=== PATIENT | female | born 1995 | race African-American/Black ===

== ENCOUNTER 2019-11-27 19:02 | Inpatient (IN) | payer MEDICAID ==
[2019-11-27] MEDS ORDERED: NORMAL SALINE 1000 ML 1,000 ML IV ONE ×2 (19:37→21:09)
[2019-11-27] MEDS ORDERED: ONDANSETRON HCL INJ/PF 4 MG/2 ML SDV IV ONE (19:38)
--- NOTE | 2019-11-27 19:41 | ER Document Report ---
ED General - General Mode of Arrival: Ambulatory Information source: Patient - HPI Onset/Duration: Gradual, Worse Quality of pain: Achy Pain Level: 5 Associated symptoms: Diarrhea, Fever, Nausea, Vomiting, Shortness of breath. denies: Chest pain, Nonproductive cough, Productive cough Exacerbated by: Denies Relieved by: Denies Similar symptoms previously: No Recently seen / treated by doctor: No <KIRAN SCHMIDT - Last Filed: 11/28/19 00:07> <AMINTA CHURCHILL - Last Filed: 11/28/19 00:55> - General Chief Complaint: Fever Stated Complaint: FEVER Time Seen by Provider: 11/27/19 19:11 Notes: Patient presents complaining of fever and chills that started 2 hours prior to arrival. Patient complains of low back pain. Patient denies any urinary symptoms. Patient complains of shortness of breath although denies any cough. Patient recently traveled here 2 weeks ago via car from [place]. Patient reports nausea vomiting and diarrhea as well. Patient states she is vomited 3 times and had diarrhea x2 episodes. Patient declines giving her history, preferring to have her mother answered the majority of the history questions. (KIRAN SCHMIDT) - Related Data Allergies/Adverse Reactions: banana Allergy (Verified 11/27/19 21:00) ibuprofen [From Motrin] Allergy (Verified 11/27/19 20:58) morphine Allergy (Verified 11/27/19 20:57) Penicillins Allergy (Verified 11/27/19 21:00) iv dye Allergy (Uncoded 11/27/19 21:00) Past Medical History - General Information source: Patient, Relative - Social History Smoking Status: Never Smoker Frequency of alcohol use: None Drug Abuse: None Lives with: Family Family History: Reviewed & Not Pertinent - Medical History Medical History: Other - Sickle cell anemia Pulmonary Medical History: Reports: Hx Asthma Past Surgical History: Reports: Hx Cholecystectomy, Hx Vascular Surgery - Port <KIRAN SCHMIDT - Last Filed: 11/28/19 00:07> Review of Systems - Review of Systems Constitutional: Chills, Fever EENT: No symptoms reported Cardiovascular: No symptoms reported. denies: Chest pain Respiratory: Short of breath. denies: Cough Gastrointestinal: Abdominal pain, Diarrhea, Nausea, Vomiting Genitourinary: Flank pain Female Genitourinary: No symptoms reported Musculoskeletal: Back pain Skin: No symptoms reported. denies: Rash Hematologic/Lymphatic: No symptoms reported Neurological/Psychological: No symptoms reported <KIRAN SCHMIDT - Last Filed: 11/28/19 00:07> Physical Exam - General General appearance: Alert In distress: Mild - HEENT Head: Normocephalic, Atraumatic Eyes: Normal Conjunctiva: Normal Nasal: Normal Mouth/Lips: Normal Mucous membranes: Dry Neck: Normal, Supple. No: Lymphadenopathy - Respiratory Respiratory status: Tachypnea Chest status: Nontender Breath sounds: Normal Chest palpation: Normal - Cardiovascular Rhythm: Tachycardia Heart sounds: S1 appreciated, S2 appreciated Murmur: No - Abdominal Inspection: Obese Distension: No distension Bowel sounds: Normal Tenderness: Tender - epigastric Organomegaly: No organomegaly - Back Back: CVA tenderness - bilat - Extremities General upper extremity: Normal inspection, Normal ROM General lower extremity: Normal inspection, Normal ROM - Neurological Neuro grossly intact: Yes Cognition: Normal Arnel Coma Scale Eye Opening: Spontaneous [place] Coma Scale Verbal: Oriented Arnel Coma Scale Motor: Obeys Commands Arnel Coma Scale Total: 15 - Psychological Associated symptoms: Normal affect, Normal mood - Skin Skin Temperature: Warm Skin Moisture: Dry Skin Color: Normal <KIRAN SCHMIDT - Last Filed: 11/28/19 00:07> - Vital signs Vitals: Temp 99.0 F 11/27/19 19:02 Course - Laboratory Result Diagrams: 11/27/19 20:15 11/27/19 20:15 <KIRAN SCHMIDT - Last Filed: 11/28/19 00:07> - Laboratory Result Diagrams: 11/27/19 20:15 11/27/19 20:15 <AMINTA CHURCHILL - Last Filed: 11/28/19 00:55> - Re-evaluation Re-evalutation: 11/27/19 21:16 Patient advised that she has a UTI that is worrisome for kidney infection, patient now acknowledges that she has had urinary symptoms that made her concerned she had a UTI. Patient denies any vaginal bleeding or discharge. 11/27/19 23:49 report and handoff given to Ban Pool NP (KIRAN SCHMIDT) 11/28/19 00:14 Report received on the patient. Awaiting imaging results. Patient with history of sickle cell, does have port in the chest, has had subjective fevers, appears to have some right flank discomfort, does have positive UTI. Is influenza positive. Had complained of some dyspnea. COVID study pending. Likely having sickle cell crisis as well. Pending admission at this time 11/28/19 00:34 I went to evaluate the patient. She reports history of asthma, sickle cell for which she is on hydroxyurea and folic acid. Recently moved from [place] to go to school here. Patient has mild right flank pain. She does suggest some stranding around the right kidney for early pyelonephritis. Also influenza A positive. Patient fever starting to increase again, temperature is 100.4 orally. Heart rate is 125. Patient mildly hypotensive with a systolic pressure of 88. Have ordered additional IV fluid she is already received 2 L of normal saline. Nursing is preparing to start the antibiotics currently. Patient lung sounds are clear to auscultation at this time. She reports the fever only started today. 11/28/19 00:[address] Dee hospitalist regarding patient, awaiting callback as he was not answering directly at this time 11/28/19 00:53 I did speak with Dr. Dee to the hospitalist. We discussed the patient's clinical course and lab work. Patient states she normally does not get transfused unless her hemoglobin drops below 5. She is 7.4 at this time. Aissatou ent is receiving Rocephin is receiving third liter of fluids we did discuss the patient's vital signs. He indicates that he will admit the patient to IMCU (AMINTA CHURCHILL) - Vital Signs Vital signs: Temp Pulse Resp BP Pulse Ox 100.4 F 123 H 24 H 100/76 100 11/27/19 23:51 11/27/19 19:07 11/27/19 21:00 11/27/19 21:00 11/27/19 21:32 - Laboratory Laboratory results interpreted by me: 11/27/19 11/27/19 11/27/19 19:56 20:15 20:15 WBC 28.0 H RBC 2.12 L Hgb 7.4 L Hct 21.0 L MCV 99 H MCH 35.0 H RDW 26.2 H Reticulocyte # 0.358 H Seg Neuts % (Manual) 88 H Lymphocytes % (Manual) 12 L Monocytes % (Manual) 0 L Abs Neuts (Manual) 24.6 H Abs Monocytes (Manual) 0.0 L Retic Count (auto) 16.90 H PT 15.6 H D-Dimer 1.30 H VBG pH VBG pCO2 VBG HCO3 Sodium Carbon Dioxide Glucose Total Bilirubin Direct Bilirubin AST Urine Protein 100 H Urine Blood MODERATE H Urine Nitrite POSITIVE H Urine Urobilinogen 2.0 H Ur Leukocyte Esterase LARGE H 11/27/19 11/27/19 20:15 21:56 WBC RBC Hgb Hct MCV MCH RDW Reticulocyte # Seg Neuts % (Manual) Lymphocytes % (Manual) Monocytes % (Manual) Abs Neuts (Manual) Abs Monocytes (Manual) Retic Count (auto) PT D-Dimer VBG pH 7.43 H VBG pCO2 24.8 L VBG HCO3 16.2 L Sodium 136.9 L Carbon Dioxide 17 L Glucose 122 H Total Bilirubin 8.4 H Direct Bilirubin 1.8 H AST 56 H Urine Protein Urine Blood Urine Nitrite Urine Urobilinogen Ur Leukocyte Esterase Critical Care Note - Critical Care Note Total time excluding time spent on procedures (mins): 45 - sepsis, hypotension <AMINTA CHURCHILL - Last Filed: 11/28/19 00:55> Discharge <KIRAN SCHMIDT - Last Filed: 11/28/19 00:07> - Discharge Admitting Provider: Luiz (Hospitalist) Unit Admitted: IMCU <AMINTA CHURCHILL - Last Filed: 11/28/19 00:55> - Discharge Clinical Impression: Acute pyelonephritis, Influenza A, Sickle cell crisis Condition: Fair Disposition: ADMITTED INPATIENT
[2019-11-27] MEDS: ACETAMINOPHEN 325 MG TABLET PO ONE ×2 (20:25→20:54)
--- NOTE | 2019-11-27 20:26 | RADIOLOGY REPORT (SQ) ---
EXAM DESCRIPTION: XR CHEST 1 VIEW COMPLETED DATE/TME: 11/27/2019 19:36 : CLINICAL HISTORY: 24 years Female sob COMPARISON: None. FINDINGS: The cardiomediastinal silhouette appears unremarkable. No consolidating infiltrates or pleural effusions. No pneumothorax. [id number] catheter with the tip at the junction of the SVC and right atrium. IMPRESSION: No acute abnormality is identified.
[2019-11-27] MEDS ORDERED: ACETAMINOPHEN 650 MG SUPP.RECT PR ONE (20:34)
[2019-11-27] MEDS ORDERED: HYDROMORPHONE HCL INJ/PF 2 MG/ML AMPULE IV ONE (20:34)
[2019-11-27 20:54] LABS: INTERNATIONAL RATION (INR) 1.23; PROTHROMBIN TIME 15.6 SEC (11.4-15.4)
[2019-11-27 20:59] LABS: ALBUMIN 4.5 g/dL (3.5-5.0); ALKALINE PHOSPHATASE 67 U/L (38-126); ANION GAP 13 (5-19); ASPARTATE AMINO TRANSFERASE 56 U/L (14-36); BILIRUBIN,DIRECT 1.8 mg/dL (0.0-0.4); BILIRUBIN,TOTAL 8.4 mg/dL (0.2-1.3); BLOOD UREA NITROGEN 13 mg/dL (7-20); CALCIUM 9.3 mg/dL (8.4-10.2); CARBON DIOXIDE 17 mmol/L (22-30); CHLORIDE 107 mmol/L (98-107); GLUCOSE 122 mg/dL (75-110); POTASSIUM 4.4 mmol/L (3.6-5.0); TOTAL PROTEIN 8.1 g/dL (6.3-8.2)
[2019-11-27 21:09] LABS: ABSOLUTE RETICS # 0.358 10^6/uL (0.028-0.122); MEAN CORPUSCULAR HGB CONC 35.4 g/dL (32.0-36.0); MEAN CORPUSCULAR VOLUME 99 fl (80-97); PLATELET COUNT 342 10^3/uL (150-450); RED BLOOD COUNT 2.12 10^6/uL (3.72-5.28); RED CELL DISTRIBUTION WIDTH 26.2 % (11.5-14.0)
[2019-11-27 21:20] LABS: APPEARANCE,URINE CLOUDY; BILIRUBIN,URINE NEGATIVE (NEGATIVE); COLOR,URINE AMBER; GLUCOSE, URINE NEGATIVE (NEGATIVE); KETONES,URINE NEGATIVE (NEGATIVE); LEUKOCYTE ESTERASE,URINE LARGE (NEGATIVE); NITRITE,URINE POSITIVE (NEGATIVE); PROTEIN,URINE 100 mg/dL (NEGATIVE); URINE SPECIFIC GRAVITY 1.011
[2019-11-27 21:22] LABS: ABSOLUTE LYMPHOCYTES# (MANUAL) 3.4 10^3/uL (0.5-4.7); BASOPHILS % (MANUAL) 0 % (0-2); EOSINOPHILS % (MANUAL) 0 % (0-6); LYMPHOCYTES % (MANUAL) 12 % (13-45); MONOCYTES % (MANUAL) 0 % (3-13); NUCLEATED RED BLOOD CELLS 2 /100 WBC (0); SEGMENTED NEUTROPHILS % (MAN) 88 % (42-78); TOTAL CELLS COUNTED 100
[2019-11-27 21:25] LABS: ANISOCYTOSIS 3+; HOWELL-JOLLY BODIES PRESENT; PAPPENHEIMER BODIES PRESENT; POLYCHROMASIA SLIGHT; SICKLE RED CELLS 1+
[2019-11-27 21:26] LABS: PLATELET COMMENT ADEQUATE
[2019-11-27 21:28] LABS: HEMOGLOBIN 7.4 g/dL (12.0-15.5)
--- NOTE | 2019-11-27 21:41 | EKG REPORT ---
SEVERITY:- BORDERLINE ECG - SINUS TACHYCARDIA BORDERLINE T ABNORMALITIES, ANTERIOR LEADS : Confirmed by: Isael Rae MD 27-Nov-2019 21:40:46
[2019-11-27 21:52] LABS: A TYPE INFLUENZA AG POSITIVE (NEGATIVE); B INFLUENZA AG NEGATIVE (NEGATIVE)
[2019-11-27] MEDS ORDERED: NORMAL SALINE 1000 ML 700 ML IV ONE (22:16)
[2019-11-27 22:22] LABS: VENOUS BLOOD BASE EXCESS -6.9 mmol/L; VENOUS BLOOD HCO3 16.2 mmol/L (20-32); VENOUS BLOOD PCO2 24.8 mmHg (35-63); VENOUS BLOOD PH 7.43 (7.30-7.42)
[2019-11-27] MEDS ORDERED: CEFTRIAXONE 1 GM/D5W RTU 1 GM/50 ML RTUPB IV ONE (23:00)
--- NOTE | 2019-11-27 23:58 | RADIOLOGY REPORT (SQ) ---
EXAM DESCRIPTION: Nuclear medicine perfusion imaging of the lungs. CLINICAL HISTORY: 24 years Female sob TECHNIQUE: Nuclear medicine perfusion scan performed 5.23 mCi intravenous technetium 99m MAA. 8 views of each. COMPARISON: Single view of the chest obtained earlier in the day FINDINGS: Perfusion: Small amount of clumping of radiopharmaceutical is seen projecting over the right heart. There is homogeneous perfusion of both lungs with no moderate or large defects. IMPRESSION: Low probability for pulmonary embolism.
[2019-11-28] MEDS ORDERED: OSELTAMIVIR PHOSPHATE 75 MG CAPSULE PO ONE (00:07)
--- NOTE | 2019-11-28 00:13 | RADIOLOGY REPORT (SQ) ---
CT ABDOMEN AND PELVIS WITHOUT INTRAVENOUS CONTRAST: 11/27/2019 11:08 PM CDT HISTORY: 24-year old with flank pain. COMPARISON: None available TECHNIQUE: Axial contiguous images were obtained from the lung bases to the proximal femurs without oral or intravenous contrast administered. Sagittal and coronal reconstructions were also obtained and reviewed. This exam was performed according to our departmental dose-optimization program, which includes automated exposure control, adjustment of the mA and/or KV according to the patient's size and/or use of iterative reconstruction technique. FINDINGS: The lung bases appear clear without evidence of a focal consolidative airspace opacity or effusions. The cardiac silhouette is prominent in size. There is trace pericardial fluid noted. Evaluation of the solid organs is limited by the lack of intravenous contrast. The visualized hepatic parenchyma is unremarkable. The gallbladder is surgically absent. The spleen, pancreas, and adrenals are normal in size and contour. The kidneys demonstrate no evidence of hydronephrosis. There is some minimal stranding around the right kidney with some mild fullness. No renal or ureteral calculi are seen. Bladder is minimally distended, but grossly appears unremarkable. The uterus is present. The stomach is not well distended. The small bowel loops appear unremarkable. No pericolonic inflammatory stranding is seen. The appendix appears unremarkable. There is no evidence of pneumoperitoneum or free fluid. The aorta and IVC appear normal in size. No significantly enlarged lymph nodes are seen in the abdomen or pelvis. Review of the bone show no evidence of any suspicious lytic or blastic lesions. IMPRESSION: There is some minimal stranding around the right kidney with some mild fullness without evidence for gross renal or ureteral calculi. This could represent evidence of infection or a recently passed calculus.
[2019-11-28] MEDS ORDERED: ACETAMINOPHEN 325 MG TABLET PO ONE (00:25)
[2019-11-28] MEDS ORDERED: RINGERS SOLUTION,LACTATED 1,000 ML IV ONE (00:25)
[2019-11-28] MEDS ORDERED: IPRATROPIUM/ALBUTEROL 0.5-2.5 MG/3 ML AMPUL NEB PRN (00:53)
[2019-11-28] MEDS ORDERED: MAG HYDROX/AL HYDROX/SIMETH SUSP 30 ML UDCUP PO PRN (00:53)
[2019-11-28] MEDS ORDERED: VANCOMYCIN HCL 1,250 MG in DEXTROSE 5%-WATER 250 ML IV ONE (00:56)
[2019-11-28] MEDS ORDERED: VANCOMYCIN HCL 0 MG in DEXTROSE 5%-WATER 250 ML IV NR (01:00)
[2019-11-28] MEDS ORDERED: VANCOMYCIN HCL INJ 1000 MG VIAL IV PRN (01:14)
[2019-11-28 02:47] LABS: CHLAM PCR NOT DETECTED (NOT DETECT)
[2019-11-28] MEDS: NORMAL SALINE 1000 ML 1,000 ML IV PRN ×3 (04:00→09:11)
[2019-11-28 04:31] LABS: HEMATOCRIT 17.7 % (36.0-47.0); MEAN CORPUSCULAR HEMOGLOBIN 34.9 pg (27.0-33.4); MEAN CORPUSCULAR HGB CONC 35.3 g/dL (32.0-36.0); MEAN CORPUSCULAR VOLUME 99 fl (80-97); PLATELET COUNT 288 10^3/uL (150-450); RED BLOOD COUNT 1.79 10^6/uL (3.72-5.28); RED CELL DISTRIBUTION WIDTH 24.8 % (11.5-14.0)
[2019-11-28 04:42] LABS: ALBUMIN 3.5 g/dL (3.5-5.0); ALKALINE PHOSPHATASE 47 U/L (38-126); ANION GAP 8 (5-19); ASPARTATE AMINO TRANSFERASE 39 U/L (14-36); BILIRUBIN,DIRECT 1.6 mg/dL (0.0-0.4); BILIRUBIN,TOTAL 6.5 mg/dL (0.2-1.3); BLOOD UREA NITROGEN 17 mg/dL (7-20); CARBON DIOXIDE 20 mmol/L (22-30); CHLORIDE 110 mmol/L (98-107); GLUCOSE 117 mg/dL (75-110); TOTAL PROTEIN 6.6 g/dL (6.3-8.2)
--- NOTE | 2019-11-28 04:53 | PDOC H&P ---
History of Present Illness Admission Date/PCP: 11/28/19 01:00 Patient complains of: Back pain nausea vomiting. History of Present Illness: CELSO ZELAYA is a 24 year old female with a past medical history of tobacco, sickle cell disease with recurrent pain crisis requiring port placement who has recently relocated from [place] without establishing. She presents with 24 hours of diffuse and low back pain nausea vomiting and diarrhea prompting evaluation in the emergency room. She is found to have leukocytosis, fever, pyuria and right-sided pyelonephritis by CT. Patient did endorse some shortness of breath prompting an influenza a test returning positive and a VQ scan came back low probability. She started on Tamiflu, empiric antibiotics and referred to the hospitalist for admission. She is adamant about allergy to ibuprofen and morphine. She receives IV Dilaudid by emergency room provider. Past Medical History Pulmonary Medical History: Reports: Asthma Psychiatric Medical History: Reports: Tobacco Dependency Denies: Depression Hematology: Reports: Sickle Cell Disease Past Surgical History Past Surgical History: Reports: Cholecystectomy, Vascular Surgery - Port Social History Information Source: Patient Lives with: Family Smoking Status: Current Some Day Smoker Electronic Cigarette use?: No Frequency of Alcohol Use: Occasional Hx Recreational Drug Use: No Drugs: None Hx Prescription Drug Abuse: No - Advance Directive Resuscitation Status: Full Code Family History Family History: Hypertension Parental Family History Reviewed: Yes Children Family History Reviewed: Yes Sibling(s) Family History Reviewed.: Yes Medication/Allergy Home Medications: No Home Medications 11/28/19 Allergies/Adverse Reactions: banana Allergy (Verified 11/27/19 21:00) ibuprofen [From Motrin] Allergy (Verified 11/27/19 20:58) morphine Allergy (Verified 11/27/19 20:57) Penicillins Allergy (Verified 11/27/19 21:00) iv dye Allergy (Uncoded 11/27/19 21:00) Review of Systems Constitutional: ABSENT: chills, fever(s), headache(s), weight gain, weight loss Eyes: ABSENT: visual disturbances Ears: ABSENT: hearing changes Cardiovascular: ABSENT: chest pain, dyspnea on exertion, edema, orthropnea, palpitations Respiratory: ABSENT: cough, hemoptysis Gastrointestinal: ABSENT: abdominal pain, constipation, diarrhea, hematemesis, hematochezia, nausea, vomiting Genitourinary: ABSENT: dysuria, hematuria Musculoskeletal: ABSENT: joint swelling Integumentary: ABSENT: rash, wounds Neurological: ABSENT: abnormal gait, abnormal speech, confusion, dizziness, focal weakness, syncope Psychiatric: ABSENT: anxiety, depression, homidical ideation, suicidal ideation Endocrine: ABSENT: cold intolerance, heat intolerance, polydipsia, polyuria Hematologic/Lymphatic: ABSENT: easy bleeding, easy bruising Physical Exam Vital Signs: Temp Pulse Resp BP Pulse Ox 98.9 F 129 H 20 105/64 97 11/28/19 04:06 11/28/19 04:06 11/28/19 04:06 11/28/19 04:06 11/28/19 04:06 Intake & Output 11/26/19 11/27/19 11/28/19 11:59 11:59 11:59 Intake Total 2750 Balance 2750 Weight 92.1 kg General appearance: PRESENT: cooperative, mild distress, obese, well-developed, well-nourished Head exam: PRESENT: atraumatic, normocephalic Eye exam: PRESENT: conjunctiva pink, EOMI, PERRLA. ABSENT: scleral icterus Ear exam: PRESENT: normal external ear exam Mouth exam: PRESENT: moist, tongue midline Neck exam: ABSENT: carotid bruit, JVD, lymphadenopathy, thyromegaly Respiratory exam: PRESENT: clear to auscultation campos. ABSENT: rales, rhonchi, wheezes Cardiovascular exam: PRESENT: RRR. ABSENT: diastolic murmur, rubs, systolic murmur Pulses: PRESENT: normal dorsalis pedis pul Vascular exam: PRESENT: normal capillary refill GI/Abdominal exam: PRESENT: normal bowel sounds, soft. ABSENT: distended, guarding, mass, organolmegaly, rebound, tenderness Rectal exam: PRESENT: deferred Extremities exam: PRESENT: full ROM. ABSENT: calf tenderness, clubbing, pedal edema Neurological exam: PRESENT: alert, awake, oriented to person, oriented to place, oriented to time, oriented to situation, CN II-XII grossly intact. ABSENT: motor sensory deficit Psychiatric exam: PRESENT: flat affect, unusual affect. ABSENT: homicidal ideation, suicidal ideation Skin exam: PRESENT: dry, intact, warm. ABSENT: cyanosis, rash Results Laboratory Results: 11/27/19 11/27/19 11/27/19 19:56 20:15 20:15 WBC 28.0 H RBC 2.12 L Hgb 7.4 L Hct 21.0 L MCV 99 H MCH 35.0 H MCHC 35.4 RDW 26.2 H Plt Count 342 Seg Neutrophils % Not Reportable Retic Count (auto) 16.90 H VBG pH VBG pCO2 VBG HCO3 VBG Base Excess Sodium 136.9 L Potassium 4.4 Chloride 107 Carbon Dioxide 17 L Anion Gap 13 BUN 13 Creatinine 0.87 Est GFR ( Amer) > 60 Glucose 122 H Lactic Acid Calcium 9.3 Total Bilirubin 8.4 H AST 56 H Alkaline Phosphatase 67 Total Protein 8.1 Albumin 4.5 Lipase 74.0 Serum HCG, Qual Urine Color MATI Urine Appearance CLOUDY Urine pH 8.0 Ur Specific [place] 1.011 Urine Protein 100 H Urine Glucose (UA) NEGATIVE Urine Ketones NEGATIVE Urine Blood MODERATE H Urine Nitrite POSITIVE H Ur Leukocyte Esterase LARGE H Urine WBC (Auto) >182 Urine RBC (Auto) 9 11/27/19 11/27/19 11/27/19 20:15 20:15 21:56 WBC RBC Hgb Hct MCV MCH MCHC RDW Plt Count Seg Neutrophils % Retic Count (auto) VBG pH 7.43 H VBG pCO2 24.8 L VBG HCO3 16.2 L VBG Base Excess -6.9 Sodium Potassium Chloride Carbon Dioxide Anion Gap BUN Creatinine Est GFR ( Amer) Glucose Lactic Acid 1.7 Calcium Total Bilirubin AST Alkaline Phosphatase Total Protein Albumin Lipase Serum HCG, Qual NEGATIVE Urine Color Urine Appearance Urine pH Ur Specific [place] Urine Protein Urine Glucose (UA) Urine Ketones Urine Blood Urine Nitrite Ur Leukocyte Esterase Urine WBC (Auto) Urine RBC (Auto) 11/28/19 00:32 WBC RBC Hgb Hct MCV MCH MCHC RDW Plt Count Seg Neutrophils % Retic Count (auto) VBG pH VBG pCO2 VBG HCO3 VBG Base Excess Sodium Potassium Chloride Carbon Dioxide Anion Gap BUN Creatinine Est GFR ( Amer) Glucose Lactic Acid 0.8 Calcium Total Bilirubin AST Alkaline Phosphatase Total Protein Albumin Lipase Serum HCG, Qual Urine Color Urine Appearance Urine pH Ur Specific [place] Urine Protein Urine Glucose (UA) Urine Ketones Urine Blood Urine Nitrite Ur Leukocyte Esterase Urine WBC (Auto) Urine RBC (Auto) Impressions: Chest X-Ray 11/27/19 19:36 IMPRESSION: No acute abnormality is identified. Abdomen/Pelvis CT 11/27/19 21:16 IMPRESSION: There is some minimal stranding around the right kidney with some mild fullness without evidence for gross renal or ureteral calculi. This could represent evidence of infection or a recently passed calculus. Lung Scan-VQ NM 11/27/19 21:16 IMPRESSION: Low probability for pulmonary embolism. Assessment and Plan - Diagnosis (1) Acute pyelonephritis Is this a current diagnosis for this admission?: Yes Plan: IV fluid challenge, Rocephin, follow-up CBC, blood and urine culture (2) Influenza A Is this a current diagnosis for this admission?: Yes Plan: Tamiflu and albuterol as needed (3) Sickle cell crisis Is this a current diagnosis for this admission?: Yes Plan: IV fluid challenge, symptomatic management, hydroxyurea and obtain medical record. - Time Time Spent with patient: 25-34 minutes - Inpatient Certification Medical Necessity: Need Close Monitoring Due to Risk of Patient Decompensation
[2019-11-28 05:04] LABS: HEMOGLOBIN 6.2 g/dL (12.0-15.5)
[2019-11-28 05:06] LABS: ABSOLUTE LYMPHOCYTES# (MANUAL) 4.9 10^3/uL (0.5-4.7); BAND NEUTROPHILS % (MANUAL) 8 % (3-5); BASOPHILS % (MANUAL) 0 % (0-2); EOSINOPHILS % (MANUAL) 0 % (0-6); LYMPHOCYTES % (MANUAL) 10 % (13-45); MONOCYTES % (MANUAL) 2 % (3-13); NUCLEATED RED BLOOD CELLS 1 /100 WBC (0); SEGMENTED NEUTROPHILS % (MAN) 80 % (42-78); TOTAL CELLS COUNTED 100
[2019-11-28 05:10] LABS: ANISOCYTOSIS 3+; OVALOCYTES 2+; POIKILOCYTOSIS 3+; TOXIC GRANULATION 1+; TOXIC VACUOLATION PRESENT
[2019-11-28 05:11] LABS: HOWELL-JOLLY BODIES PRESENT; SCHISTOCYTES 1+; SICKLE RED CELLS 2+; TARGET CELLS SLIGHT; TEAR DROP CELLS SLIGHT
[2019-11-28 05:12] LABS: PLATELET COMMENT ADEQUATE; WHITE BLOOD COUNT 49.1 10^3/uL (4.0-10.5)
[2019-11-28] MEDS: HEPARIN SOD (PORCINE) 5,000 UNIT/ML 1 ML VIAL SUBCUT SCH ×3 (05:55→22:14)
[2019-11-28] MEDS: HYDROXYUREA 500 MG CAPSULE PO SCH (09:11)
[2019-11-28] MEDS: DOCUSATE SODIUM 100 MG CAPSULE PO SCH ×2 (09:12→17:10)
[2019-11-28] MEDS: OSELTAMIVIR PHOSPHATE 75 MG CAPSULE PO SCH ×2 (10:08→17:13)
[2019-11-28] MEDS ORDERED: OXYCODONE-ACETAMINOPHEN 5-325 MG TABLET PO PRN (12:20)
--- NOTE | 2019-11-28 12:20 | Progress Note ---
Provider Note Provider Note: 11/28/2019 Brief note as patient was admitted after midnight last night. Patient was admitted with back pain nausea vomiting as well as shortness of breath. Patient is flu A+, appears to have a UTI, possibly pyelonephritis, and sickle cell crisis. Temperature 98.9 pulse between 120 and 130 blood pressure 105/64 O2 sat 97% on 2 L Patient had a temperature of 100.4 in the ER Patient white count 28,000 today is up to 49.1 hemoglobin 7.4 today it is down to 6.2 she does not require transfusion unless it is less than 5 Retic count is elevated at 16.9 d-dimer was elevated at 1.3 but no evidence of PE by VQ scan. Lactic acid is normal Currently on IV Rocephin vancomycin and Tamiflu I currently see no pain medication ordered for the patient. Percocet would be acceptable if needed I will place that order as needed
[2019-11-28] MEDS: VANCOMYCIN HCL 750 MG in DEXTROSE 5%-WATER 250 ML IV SCH ×2 (13:26→22:09)
[2019-11-28 13:29] LABS: PATH REVIEW PATHOLOGIST REVIEWED
[2019-11-28] MEDS ORDERED: ONDANSETRON HCL INJ/PF 4 MG/2 ML SDV IV PRN (17:30)
[2019-11-28] MEDS: ACETAMINOPHEN 325 MG TABLET PO PRN (21:13)
[2019-11-28] MEDS: CEFTRIAXONE 1 GM/D5W RTU 1 GM/50 ML RTUPB IV SCH (21:14)
[2019-11-29] MEDS: ACETAMINOPHEN 325 MG TABLET PO PRN ×3 (00:46→23:15)
[2019-11-29] MEDS: VANCOMYCIN HCL 750 MG in DEXTROSE 5%-WATER 250 ML IV SCH ×3 (06:05→23:15)
[2019-11-29] MEDS: HEPARIN SOD (PORCINE) 5,000 UNIT/ML 1 ML VIAL SUBCUT SCH ×3 (06:09→22:30)
[2019-11-29 06:20] LABS: MEAN CORPUSCULAR HEMOGLOBIN 33.4 pg (27.0-33.4); MEAN CORPUSCULAR HGB CONC 34.2 g/dL (32.0-36.0); MEAN CORPUSCULAR VOLUME 98 fl (80-97); PLATELET COUNT 264 10^3/uL (150-450)
[2019-11-29 06:29] LABS: ALBUMIN 3.2 g/dL (3.5-5.0); ALKALINE PHOSPHATASE 53 U/L (38-126); ANION GAP 10 (5-19); ASPARTATE AMINO TRANSFERASE 22 U/L (14-36); BILIRUBIN,DIRECT 2.1 mg/dL (0.0-0.4); BILIRUBIN,TOTAL 6.3 mg/dL (0.2-1.3); BLOOD UREA NITROGEN 19 mg/dL (7-20); CARBON DIOXIDE 17 mmol/L (22-30); CHLORIDE 111 mmol/L (98-107); GLUCOSE 119 mg/dL (75-110); POTASSIUM 3.4 mmol/L (3.6-5.0); TOTAL PROTEIN 6.3 g/dL (6.3-8.2)
[2019-11-29 06:49] LABS: WHITE BLOOD COUNT 40.1 10^3/uL (4.0-10.5)
[2019-11-29 06:50] LABS: HEMATOCRIT 14.6 % (36.0-47.0)
[2019-11-29 06:52] LABS: ABSOLUTE LYMPHOCYTES# (MANUAL) 1.2 10^3/uL (0.5-4.7); ABSOLUTE MONOCYTES # (MANUAL) 0.8 10^3/uL (0.1-1.4); BAND NEUTROPHILS % (MANUAL) 1 % (3-5); BASOPHILS % (MANUAL) 0 % (0-2); EOSINOPHILS % (MANUAL) 0 % (0-6); LYMPHOCYTES % (MANUAL) 3 % (13-45); MONOCYTES % (MANUAL) 2 % (3-13); SEGMENTED NEUTROPHILS % (MAN) 94 % (42-78); TOTAL CELLS COUNTED 100
[2019-11-29 06:53] LABS: ANISOCYTOSIS 3+; POLYCHROMASIA SLIGHT; SICKLE RED CELLS 1+; TARGET CELLS SLIGHT
[2019-11-29 06:54] LABS: PLATELET COMMENT ADEQUATE; POIKILOCYTOSIS SLIGHT
[2019-11-29] MEDS: HYDROXYUREA 500 MG CAPSULE PO SCH (09:12)
[2019-11-29] MEDS: OSELTAMIVIR PHOSPHATE 75 MG CAPSULE PO SCH ×2 (09:13→17:14)
[2019-11-29] MEDS: DOCUSATE SODIUM 100 MG CAPSULE PO SCH ×2 (09:13→17:19)
[2019-11-29] MEDS ORDERED: NORMAL SALINE 250 ML IV PRN ×2 (09:19)
[2019-11-29 10:50] LABS: PATH REVIEW PATHOLOGIST REVIEWED
--- NOTE | 2019-11-29 13:49 | PDOC PROGRESS REPORT ---
Subjective Progress Note for:: 11/29/19 - Area you go go ahead and give it to her just documented in the nurses notes I asked by a number of the phone rang right when you call records Reason For Visit: R PYELO, INFLU A, SICKLE CELL ANEMIA 11/29/2019 Patient admitted for sickle cell crisis, back pain, nausea, vomiting, shortness of breath Positive for flu A, pyelonephritis, sickle cell crisis Physical Exam Vital Signs: Temp Pulse Resp BP Pulse Ox 98.8 F 113 H 18 114/51 L 95 11/29/19 03:39 11/29/19 08:17 11/29/19 08:17 11/29/19 03:39 11/29/19 08:17 Intake & Output 11/28/19 11/29/19 11/30/19 06:59 06:59 06:59 Intake Total 5000 3370 400 Output Total 600 3050 600 Balance 4400 320 -200 Weight 92.1 kg 91.6 kg General appearance: PRESENT: mild distress - Due to anxiety Respiratory exam: PRESENT: clear to auscultation campos. ABSENT: rales, rhonchi, wheezes Cardiovascular exam: PRESENT: RRR. ABSENT: diastolic murmur, rubs, systolic murmur Neurological exam: PRESENT: alert, awake, oriented to person, oriented to place, oriented to time, oriented to situation, CN II-XII grossly intact. ABSENT: motor sensory deficit Psychiatric exam: PRESENT: anxious, appropriate affect, normal mood. ABSENT: homicidal ideation, suicidal ideation Results Laboratory Results: 11/29/19 06:00 11/29/19 06:00 11/29/19 11/29/19 11/29/19 06:00 06:00 10:25 WBC 40.1 H* RBC 1.50 L Hgb 5.0 L* Hct 14.6 L* MCV 98 H MCH 33.4 MCHC 34.2 RDW 22.0 H Plt Count 264 Seg Neutrophils % Not Reportable Sodium 137.5 Potassium 3.4 L Chloride 111 H Carbon Dioxide 17 L Anion Gap 10 BUN 19 Creatinine 1.26 H Est GFR ( Amer) > 60 Glucose 119 H Calcium 8.0 L Total Bilirubin 6.3 H AST 22 Alkaline Phosphatase 53 Total Protein 6.3 Albumin 3.2 L Blood Type A POSITIVE Antibody Screen NEGATIVE 11/27/19 19:56 Clean Catch Midstream Urine Culture - Final Escherichia Coli 11/27/19 20:15 Blood Blood Culture (PCR) - Final Escherichia Coli 11/27/19 21:50 Blood Blood Culture (PCR) - Final Escherichia Coli Impressions: Chest X-Ray 11/27/19 19:36 IMPRESSION: No acute abnormality is identified. Abdomen/Pelvis CT 11/27/19 21:16 IMPRESSION: There is some minimal stranding around the right kidney with some mild fullness without evidence for gross renal or ureteral calculi. This could represent evidence of infection or a recently passed calculus. Lung Scan-VQ NM 11/27/19 21:16 IMPRESSION: Low probability for pulmonary embolism. Assessment and Plan - Diagnosis (1) Anxiety Is this a current diagnosis for this admission?: Yes (2) Insomnia Is this a current diagnosis for this admission?: Yes (4) Acute pyelonephritis Is this a current diagnosis for this admission?: Yes (5) Influenza A Is this a current diagnosis for this admission?: Yes (6) Sickle cell crisis Is this a current diagnosis for this admission?: Yes - Plan Summary Summary: 11/29/2019 Today patient's hemoglobin is dropped down to 5 when she was admitted it was 7.4 went down to 6.2 and today it is 5 potassium on admission was 4.4 today is dropped down to 3.4. Will add oral potassium replacements On admission her white blood cell count was 28,000 is gone up to 49,000 and today is back down to 40,000 Patient has positive blood cultures growing out E. coli urine culture growing out E. coli and she is flu a positive She is currently on Tamiflu vancomycin and Rocephin Patient is going to receive 2 units of packed red cells today. On 526 patient had a temperature of 102 but yesterday and today her temperature is 98.8. Pulse ranges from 1 13-1 30. Blood pressure 114/50. Patient is anxious and wants to go home patient says she is not sleeping well I have offered her benzodiazepines or muscle relaxants to help calm her down she refuses these. Told her that with her hemoglobin being 5 she needs a transfusions so that she can clear her viral and bacterial infections Waiting for sensitivities - Time Time Spent with patient: 35 or more minutes
[2019-11-29] MEDS ORDERED: DIPHENHYDRAMINE HCL 50 MG/ML VIAL IV PRN (13:50)
[2019-11-29] MEDS ORDERED: ACETAMINOPHEN 325 MG TABLET PO PRN (13:50)
[2019-11-29 22:17] LABS: VANCOMYCIN,TROUGH 13.1 ug/mL (5.0-20.0)
[2019-11-29] MEDS: POTASSIUM CHLORIDE 10 MEQ TABLET.ER PO SCH (22:34)
[2019-11-29] MEDS: CEFTRIAXONE 1 GM/D5W RTU 1 GM/50 ML RTUPB IV SCH (22:34)
[2019-11-30] MEDS ORDERED: ACETAMINOPHEN 325 MG TABLET PO PRN (05:00)
[2019-11-30] MEDS: VANCOMYCIN HCL 750 MG in DEXTROSE 5%-WATER 250 ML IV SCH (05:28)
[2019-11-30] MEDS: ACETAMINOPHEN 325 MG TABLET PO PRN ×2 (05:29→11:20)
[2019-11-30] MEDS: HEPARIN SOD (PORCINE) 5,000 UNIT/ML 1 ML VIAL SUBCUT SCH ×3 (05:29→23:03)
[2019-11-30 10:37] LABS: ABSOLUTE RETICS # 0.123 10^6/uL (0.028-0.122); MEAN CORPUSCULAR HEMOGLOBIN 32.5 pg (27.0-33.4); MEAN CORPUSCULAR HGB CONC 34.5 g/dL (32.0-36.0); PLATELET COUNT 260 10^3/uL (150-450); RED BLOOD COUNT 1.35 10^6/uL (3.72-5.28); RED CELL DISTRIBUTION WIDTH 22.1 % (11.5-14.0); RETICULOCYTE COUNT (AUTO) 9.14 % (0.66-2.85); WHITE BLOOD COUNT 29.1 10^3/uL (4.0-10.5)
[2019-11-30 10:55] LABS: ANION GAP 11 (5-19); BLOOD UREA NITROGEN 14 mg/dL (7-20); CALCIUM 8.5 mg/dL (8.4-10.2); CARBON DIOXIDE 18 mmol/L (22-30); CHLORIDE 106 mmol/L (98-107); GLUCOSE 109 mg/dL (75-110); POTASSIUM 3.5 mmol/L (3.6-5.0)
[2019-11-30] MEDS: DOCUSATE SODIUM 100 MG CAPSULE PO SCH ×2 (11:05→17:47)
[2019-11-30 11:06] LABS: MEAN CORPUSCULAR VOLUME 94 fl (80-97)
[2019-11-30] MEDS: OSELTAMIVIR PHOSPHATE 75 MG CAPSULE PO SCH ×2 (11:06→17:48)
[2019-11-30] MEDS: POTASSIUM CHLORIDE 10 MEQ TABLET.ER PO SCH ×2 (11:06→23:29)
[2019-11-30] MEDS: HYDROXYUREA 500 MG CAPSULE PO SCH (11:06)
[2019-11-30 11:10] LABS: HEMATOCRIT 12.7 % (36.0-47.0); HEMOGLOBIN 4.4 g/dL (12.0-15.5)
[2019-11-30 11:12] LABS: ABSOLUTE LYMPHOCYTES# (MANUAL) 4.1 10^3/uL (0.5-4.7); ABSOLUTE MONOCYTES # (MANUAL) 0.9 10^3/uL (0.1-1.4); BASOPHILS % (MANUAL) 0 % (0-2); EOSINOPHILS % (MANUAL) 0 % (0-6); LYMPHOCYTES % (MANUAL) 14 % (13-45); MONOCYTES % (MANUAL) 3 % (3-13); SEGMENTED NEUTROPHILS % (MAN) 83 % (42-78); TOTAL CELLS COUNTED 100
[2019-11-30 11:13] LABS: ANISOCYTOSIS 3+; PLATELET COMMENT ADEQUATE; SICKLE RED CELLS 1+; TARGET CELLS 1+
[2019-11-30 11:14] LABS: OVALOCYTES SLIGHT; POIKILOCYTOSIS 1+; POLYCHROMASIA SLIGHT
[2019-11-30] MEDS ORDERED: DIPHENHYDRAMINE HCL 50 MG/ML VIAL IV PRN (11:32)
--- NOTE | 2019-11-30 11:40 | PDOC PROGRESS REPORT ---
Subjective Progress Note for:: 11/30/19 Reason For Visit: R PYELO, INFLU A, SICKLE CELL ANEMIA 11/30/2019 Patient admitted for sickle cell crisis, flu a positive, pyelonephritis, Physical Exam Vital Signs: Temp Pulse Resp BP Pulse Ox 100.8 F H 114 H 18 101/51 L 93 11/30/19 07:55 11/30/19 07:55 11/30/19 07:55 11/30/19 07:55 11/30/19 07:55 Intake & Output 11/29/19 11/30/19 12/01/19 06:59 06:59 06:59 Intake Total 3370 1410 250 Output Total 3050 3350 Balance 320 -1940 250 Weight 91.6 kg 91.4 kg General appearance: PRESENT: mild distress Respiratory exam: PRESENT: clear to auscultation campos. ABSENT: rales, rhonchi, wheezes Cardiovascular exam: PRESENT: RRR. ABSENT: diastolic murmur, rubs, systolic murmur Neurological exam: PRESENT: alert, awake, oriented to person, oriented to place, oriented to time, oriented to situation, CN II-XII grossly intact. ABSENT: motor sensory deficit Psychiatric exam: PRESENT: agitated, anxious Results Laboratory Results: 11/30/19 10:07 11/30/19 10:07 11/29/19 11/30/19 11/30/19 10:25 08:35 08:35 WBC Cancelled RBC Cancelled Hgb Cancelled Hct Cancelled MCV Cancelled MCH Cancelled MCHC Cancelled RDW Cancelled Plt Count Cancelled Seg Neutrophils % Cancelled Retic Count (auto) Cancelled Absolute Retic Cancelled Sodium Cancelled Potassium Cancelled Chloride Cancelled Carbon Dioxide Cancelled Anion Gap Cancelled BUN Cancelled Creatinine Cancelled Est GFR ( Amer) Cancelled Est GFR (Non-Af Amer) Cancelled Glucose Cancelled Calcium Cancelled Blood Type A POSITIVE Antibody Screen NEGATIVE 11/30/19 11/30/19 10:07 10:07 WBC 29.1 H RBC 1.35 L Hgb 4.4 L* Hct 12.7 L* MCV 94 D MCH 32.5 MCHC 34.5 RDW 22.1 H Plt Count 260 Seg Neutrophils % Not Reportable Retic Count (auto) 9.14 H Absolute Retic Sodium 134.6 L Potassium 3.5 L Chloride 106 Carbon Dioxide 18 L Anion Gap 11 BUN 14 Creatinine 1.14 Est GFR ( Amer) > 60 Est GFR (Non-Af Amer) Glucose 109 Calcium 8.5 Blood Type Antibody Screen 11/27/19 21:50 Blood Blood Culture (PCR) - Final Escherichia Coli 11/27/19 21:50 Blood Blood Culture - Final Escherichia Coli 11/27/19 20:15 Blood Blood Culture (PCR) - Final Escherichia Coli 11/27/19 20:15 Blood Blood Culture - Final Escherichia Coli 11/27/19 19:56 Clean Catch Midstream Urine Culture - Final Escherichia Coli Impressions: Chest X-Ray 11/27/19 19:36 IMPRESSION: No acute abnormality is identified. Abdomen/Pelvis CT 11/27/19 21:16 IMPRESSION: There is some minimal stranding around the right kidney with some mild fullness without evidence for gross renal or ureteral calculi. This could represent evidence of infection or a recently passed calculus. Lung Scan-VQ NM 11/27/19 21:16 IMPRESSION: Low probability for pulmonary embolism. Assessment and Plan - Diagnosis (1) Anxiety Is this a current diagnosis for this admission?: Yes (2) Insomnia Is this a current diagnosis for this admission?: Yes (4) Acute pyelonephritis Is this a current diagnosis for this admission?: Yes (5) Influenza A Is this a current diagnosis for this admission?: Yes (6) Sickle cell crisis Is this a current diagnosis for this admission?: Yes - Plan Summary Summary: 11/29/2019 Today patient's hemoglobin is dropped down to 5 when she was admitted it was 7.4 went down to 6.2 and today it is 5 potassium on admission was 4.4 today is dropped down to 3.4. Will add oral potassium replacements On admission her white blood cell count was 28,000 is gone up to 49,000 and today is back down to 40,000 Patient has positive blood cultures growing out E. coli urine culture growing out E. coli and she is flu a positive She is currently on Tamiflu vancomycin and Rocephin Patient is going to receive 2 units of packed red cells today. On 526 patient had a temperature of 102 but yesterday and today her temperature is 98.8. Pulse ranges from 1 13-1 30. Blood pressure 114/50. Patient is anxious and wants to go home patient says she is not sleeping well I have offered her benzodiazepines or muscle relaxants to help calm her down she refuses these. Told her that with her hemoglobin being 5 she needs a transfusions so that she can clear her viral and bacterial infections Waiting for sensitivities 11/30/2019 Temperature 99.7 however it had been up to 100.3 and yesterday was 101.8 Patient is getting Tylenol she is allergic to ibuprofen and the penicillins although she has been on Rocephin now for several days with no problems Cultures and urine cultures are growing back E. coli that is sensitive to Rocephin I have stopped her vancomycin and continued Rocephin and Tamiflu White blood cell count has come down today to 29,000 this was up to 49,000 hemoglobin dropped down to 4.4 she was unable to get her 2 units of packed red cells yesterday due to fever Heart rate seems to be slowing slightly now in the 116 region Lytes are grossly normal Patient will get her 2 units of packed cells today patient will continue on Tamiflu and Rocephin. Will consult infectious disease to see how long she needs to be on IV antibiotics - Time Time Spent with patient: 35 or more minutes
[2019-11-30 19:32] LABS: HEMATOCRIT 17.7 % (36.0-47.0); MEAN CORPUSCULAR HEMOGLOBIN 30.5 pg (27.0-33.4); MEAN CORPUSCULAR HGB CONC 34.9 g/dL (32.0-36.0); PLATELET COUNT 265 10^3/uL (150-450); RED BLOOD COUNT 2.03 10^6/uL (3.72-5.28); WHITE BLOOD COUNT 26.1 10^3/uL (4.0-10.5)
[2019-11-30 19:49] LABS: MEAN CORPUSCULAR VOLUME 87 fl (80-97)
[2019-11-30 19:57] LABS: ABSOLUTE LYMPHOCYTES# (MANUAL) 4.2 10^3/uL (0.5-4.7); ABSOLUTE MONOCYTES # (MANUAL) 1.3 10^3/uL (0.1-1.4); BASOPHILS % (MANUAL) 0 % (0-2); EOSINOPHILS % (MANUAL) 0 % (0-6); HYPERSEGMENTED NEUTROPHILS PRESENT; LYMPHOCYTES % (MANUAL) 16 % (13-45); MONOCYTES % (MANUAL) 5 % (3-13); SEGMENTED NEUTROPHILS % (MAN) 79 % (42-78); TOTAL CELLS COUNTED 100
[2019-11-30 19:58] LABS: ANISOCYTOSIS 3+
[2019-11-30 19:59] LABS: BURR CELLS 1+; TARGET CELLS 2+
[2019-11-30 20:00] LABS: PLATELET COMMENT ADEQUATE; POLYCHROMASIA SLIGHT; SICKLE RED CELLS 1+
[2019-11-30 20:08] LABS: HEMOGLOBIN 6.2 g/dL (12.0-15.5)
[2019-11-30] MEDS: CEFTRIAXONE 1 GM/D5W RTU 1 GM/50 ML RTUPB IV SCH (22:44)
[2019-11-30] MEDS ORDERED: POTASSIUM CHLORIDE 20 MEQ PACKET PO ONE (23:30)
[2019-11-30] MEDS ORDERED: POTASSIUM CHLORIDE 20 MEQ PACKET NG ONE (23:30)
[2019-12-01] MEDS: HEPARIN SOD (PORCINE) 5,000 UNIT/ML 1 ML VIAL SUBCUT SCH (06:15)
--- NOTE | 2019-12-01 09:12 | Progress Note ---
Provider Note Provider Note: [facility] ID Telephone Advice Consultation Chart reviewed. Patient is a 24-year old woman with Sickle cell disease who recently moved from [place] presenting with fever, chills, nausea, vomiting and diarrhea. She also presented right flank pain. On admission she was found septic with fever, elevated WBC count. Her UA was positive. She had a CT scan of abdomen and pelvis that demonstrated right perinephric stranding consistent with pyelonephritis. She was started on ceftriaxone. Her blood cultures are now positive for E coli and urine culture is positive for the same bacteria. She has been clinically improving in terms of the fever and tachycardia. She was found with a sickle cell crisis as well, precipitated by the infectious process. Her Influenza test was positive as well, SRAS-CoV-2 was negative. test negative. She has been on osteltamivir for influenza. ID consulted for antibiotics recommendations. PMH: Sickle Cell DIsease Allergies: banana Allergy (Verified 11/27/19 21:00) ibuprofen [From Motrin] Allergy (Verified 11/27/19 20:58) morphine Allergy (Verified 11/27/19 20:57) Penicillins Allergy (Verified 11/27/19 21:00) iv dye Allergy (Uncoded 11/27/19 21:00) Medications: Hydroxyurea [Hydrea 500 Mg Capsule] 500 mg PO TID 11/28/19 Vital Signs: Temp Pulse Resp BP Pulse Ox 99.6 F 94 18 107/59 L 94 12/01/19 03:30 12/01/19 07:00 12/01/19 03:30 12/01/19 03:30 12/01/19 03:30 Intake & Output 11/30/19 12/01/19 12/02/19 06:59 06:59 06:59 Intake Total 1410 2900 Output Total 3350 3250 Balance -1940 -350 Weight 91.4 kg 91.4 kg Weight/Height Weight 91.4 kg Height 5 ft 3 in Laboratories: 11/30/19 19:08 11/30/19 10:07 MCV 87 fl (80-97) D 11/30/19 19:08 MCH 30.5 pg (27.0-33.4) 11/30/19 19:08 MCHC 34.9 g/dL (32.0-36.0) 11/30/19 19:08 RDW 23.0 % (11.5-14.0) H 11/30/19 19:08 Seg Neutrophils % Not Reportable 11/30/19 19:08 Retic Count (auto) 9.14 % (0.66-2.85) H 11/30/19 10:07 Absolute Retic Cancelled 11/30/19 08:35 VBG pH 7.43 (7.30-7.42) H 11/27/19 21:56 VBG pCO2 24.8 mmHg (35-63) L 11/27/19 21:56 VBG HCO3 16.2 mmol/L (20-32) L 11/27/19 21:56 VBG Base Excess -6.9 mmol/L 11/27/19 21:56 Chloride 106 mmol/L (98-107) 11/30/19 10:07 Carbon Dioxide 18 mmol/L (22-30) L 11/30/19 10:07 Anion Gap 11 (5-19) 11/30/19 10:07 Est GFR ( Amer) > 60 (>60) 11/30/19 10:07 Est GFR (Non-Af Amer) Cancelled 11/30/19 08:35 Glucose 109 mg/dL (75-110) 11/30/19 10:07 Lactic Acid 1.1 mmol/L (0.7-2.1) 11/28/19 04:15 Calcium 8.5 mg/dL (8.4-10.2) 11/30/19 10:07 Total Bilirubin 6.3 mg/dL (0.2-1.3) H 11/29/19 06:00 AST 22 U/L (14-36) 11/29/19 06:00 Alkaline Phosphatase 53 U/L (38-126) 11/29/19 06:00 Total Protein 6.3 g/dL (6.3-8.2) 11/29/19 06:00 Albumin 3.2 g/dL (3.5-5.0) L 11/29/19 06:00 Lipase 74.0 U/L (23-300) 11/27/19 20:15 Serum HCG, Qual NEGATIVE (NEGATIVE) 11/27/19 20:15 Urine Color MATI 11/27/19 19:56 Urine Appearance CLOUDY 11/27/19 19:56 Urine pH 8.0 (5.0-9.0) 11/27/19 19:56 Ur Specific [place] 1.011 11/27/19 19:56 Urine Protein 100 mg/dL (NEGATIVE) H 11/27/19 19:56 Urine Glucose (UA) NEGATIVE mg/dL (NEGATIVE) 11/27/19 19:56 Urine Ketones NEGATIVE mg/dL (NEGATIVE) 11/27/19 19:56 Urine Blood MODERATE (NEGATIVE) H 11/27/19 19:56 Urine Nitrite POSITIVE (NEGATIVE) H 11/27/19 19:56 Ur Leukocyte Esterase LARGE (NEGATIVE) H 11/27/19 19:56 Urine WBC (Auto) >182 /HPF 11/27/19 19:56 Urine RBC (Auto) 9 /HPF 11/27/19 19:56 Blood Type A POSITIVE 11/29/19 10:25 Antibody Screen NEGATIVE 11/29/19 10:25 11/27/19 20:15 Blood Blood Culture (PCR) - Final Escherichia Coli 11/27/19 20:15 Blood Blood Culture - Final Escherichia Coli 11/27/19 21:50 Blood Blood Culture (PCR) - Final Escherichia Coli 11/27/19 21:50 Blood Blood Culture - Final Escherichia Coli Radiology: Chest X-Ray 11/27/19 19:36 IMPRESSION: No acute abnormality is identified. Abdomen/Pelvis CT 11/27/19 21:16 IMPRESSION: There is some minimal stranding around the right kidney with some mild fullness without evidence for gross renal or ureteral calculi. This could represent evidence of infection or a recently passed calculus. Lung Scan-VQ NM 11/27/19 21:16 IMPRESSION: Low probability for pulmonary embolism. Assessment and Recommendations: Patient evaluated for E coli bacteremia from urinary source. She has right pyelonephritis. Her blood and urine cultures have the same isolate. There is no hydronephrosis or nephrolithiasis. She is on ceftriaxone which is adequate. Duration of therapy for E coli bacteremia from pyelonephritis is 14 days if a beta-lactam is used. When fluoroquinolones are used, a shorter course may be given. She is not . She is on day 5 of therapy, when ready to be discharged, can transition to ciprofloxacin 500 mg bid to complete a total (IV and oral) of 10-14 days based on clinical response. No need to repeat blood cultures unless no improvement or clinical deterioration. Please call if questions. While on cipro avoid taking MVI or minerals as zinc, iron, magnesium, calcium as they affect the absorption of the ciprofloxacin. There is always risk of tendon rupture, aortic aneurysm rupture, CDI, QT prolongation. Mirela Lala MD [facility] [phone]
[2019-12-01] MEDS: HYDROXYUREA 500 MG CAPSULE PO SCH (09:15)
[2019-12-01] MEDS: DOCUSATE SODIUM 100 MG CAPSULE PO SCH (09:15)
[2019-12-01] MEDS: OSELTAMIVIR PHOSPHATE 75 MG CAPSULE PO SCH (09:16)
[2019-12-01] MEDS ORDERED: POTASSIUM CHLORIDE 20 MEQ PACKET PO SCH (10:00)
[2019-12-01 12:28] VITALS: BP 119/55
--- NOTE | 2019-12-16 19:27 | PDOC DISCHARGE SUMMARY ---
Impression - Admit/DC Date/PCP Admission Date/Primary Care Provider: 11/28/19 01:00 Discharge Date: 12/01/19 - Discharge Diagnosis (1) Anxiety Is this a current diagnosis for this admission?: Yes (2) Insomnia Is this a current diagnosis for this admission?: Yes (4) Acute pyelonephritis Is this a current diagnosis for this admission?: Yes (5) Influenza A Is this a current diagnosis for this admission?: Yes (6) Sickle cell crisis Is this a current diagnosis for this admission?: Yes - Assessment Summary: 11/29/2019 Today patient's hemoglobin is dropped down to 5 when she was admitted it was 7.4 went down to 6.2 and today it is 5 potassium on admission was 4.4 today is dropped down to 3.4. Will add oral potassium replacements On admission her white blood cell count was 28,000 is gone up to 49,000 and today is back down to 40,000 Patient has positive blood cultures growing out E. coli urine culture growing out E. coli and she is flu a positive She is currently on Tamiflu vancomycin and Rocephin Patient is going to receive 2 units of packed red cells today. On 526 patient had a temperature of 102 but yesterday and today her temperature is 98.8. Pulse ranges from 1 13-1 30. Blood pressure 114/50. Patient is anxious and wants to go home patient says she is not sleeping well I have offered her benzodiazepines or muscle relaxants to help calm her down she refuses these. Told her that with her hemoglobin being 5 she needs a transfusions so that she can clear her viral and bacterial infections Waiting for sensitivities 11/30/2019 Temperature 99.7 however it had been up to 100.3 and yesterday was 101.8 Patient is getting Tylenol she is allergic to ibuprofen and the penicillins although she has been on Rocephin now for several days with no problems Cultures and urine cultures are growing back E. coli that is sensitive to Rocephin I have stopped her vancomycin and continued Rocephin and Tamiflu White blood cell count has come down today to 29,000 this was up to 49,000 hem oglobin dropped down to 4.4 she was unable to get her 2 units of packed red cells yesterday due to fever Heart rate seems to be slowing slightly now in the 116 region Lytes are grossly normal Patient will get her 2 units of packed cells today patient will continue on Tamiflu and Rocephin. Will consult infectious disease to see how long she needs to be on IV antibiotics 12/01/2019 Patient was admitted with sepsis and fever elevated white count and urinalysis was positive also CT scan of the abdomen and pelvis showed a right perinephritic nephrotic stranding consistent with pyelonephritis. He was started on Rocephin blood cultures are positive for E. coli and urine culture positive for E. coli as well She was placed on Tamiflu for her influenza A Patient's heart was reviewed by infectious disease who felt that patient could either be sent home with a total of 14 days of a beta-lactam or 10 days if the patient was on fluoroquinolone Patient was discharged home on Cipro 500 mg twice daily for 10 days 20 tablets For sickle cell crisis she was sent home with Percocet 11/04/2024 number 10 tablets Was also sent home with Tamiflu 75 mg twice daily for 2 days Patient was asking to go home. Patient was medically stable.. Patient's hemoglobin at the time of discharge was 6.2 which according to the patient is about her baseline WBCs have come down to 26,000 from a high of 49,000 Patient's last fever was 48 hours ago which was 100.8 Blood pressure 119/55 Diagnosis #1 is flu a positive, bacteremia E. coli, UTI E. coli, pyelonephritis, sickle cell crisis, anemia of chronic disease. - Additional Information Resuscitation Status: Full Code Discharge Diet: As Tolerated Discharge Activity: Balance Activity w/Rest, Bedrest Referrals: Other, [Other] (Patient stated that she will make own appointment after getting referral.) Prescriptions: Ciprofloxacin HCl [Cipro 500 mg Tablet] 500 mg PO BID 10 Days #20 tablet Oxycodone HCl/Acetaminophen [Percocet 5-325 mg Tablet] 1 tab PO Q4HP PRN 2 Days #10 tablet PRN Reason: Potassium Chloride [Potassium Chloride 20 Meq Packet] 20 meq PO Q12 15 Days #30 packet Oseltamivir Phosphate [Tamiflu 75 mg Capsule] 75 mg PO BID 2 Days #3 capsule Home Medications: Hydroxyurea [Hydrea 500 mg Capsule] 500 mg PO TID 11/28/19 Acetaminophen [Tylenol 325 mg Tablet] 650 mg PO Q4HP PRN tablet 12/01/19 Ciprofloxacin HCl [Cipro 500 mg Tablet] 500 mg PO BID 10 Days #20 tablet Docusate Sodium [Colace 100 mg Capsule] 100 mg PO BID capsule 12/01/19 Mag Hydrox/Al Hydrox/Simeth [Maalox Plus Susp 30 Udcup] 15 ml PO Q6HP PRN udc 12/01/19 Oseltamivir Phosphate [Tamiflu 75 mg Capsule] 75 mg PO BID 2 Days #3 capsule 12/01/19 Oxycodone HCl/Acetaminophen [Percocet 5-325 mg Tablet] 1 tab PO Q4HP PRN 2 Days #10 tablet 12/01/19 Potassium Chloride [Potassium Chloride 20 Meq Packet] 20 meq PO Q12 15 Days #30 packet 12/01/19 History of Present Illiness History of Present Illness: CELSO ZELAYA is a 24 year old female Physical Exam Vital Signs: Temp Pulse Resp BP Pulse Ox 99.5 F 108 H 18 119/55 L 93 12/01/19 12:27 12/01/19 12:27 12/01/19 12:27 12/01/19 12:27 12/01/19 12:27 Results Laboratory Results: WBC 26.1 10^3/uL (4.0-10.5) H 11/30/19 19:08 RBC 2.03 10^6/uL (3.72-5.28) L 11/30/19 19:08 Hgb 6.2 g/dL (12.0-15.5) L 11/30/19 19:08 Hct 17.7 % (36.0-47.0) L 11/30/19 19:08 MCV 87 fl (80-97) D 11/30/19 19:08 MCH 30.5 pg (27.0-33.4) 11/30/19 19:08 MCHC 34.9 g/dL (32.0-36.0) 11/30/19 19:08 RDW 23.0 % (11.5-14.0) H 11/30/19 19:08 Plt Count 265 10^3/uL (150-450) 11/30/19 19:08 Lymph % (Auto) Not Reportable 11/30/19 19:08 [place] % (Auto) Not Reportable 11/30/19 19:08 Eos % (Auto) Not Reportable 11/30/19 19:08 Baso % (Auto) Not Reportable 11/30/19 19:08 Reticulocyte # 0.123 10^6/uL (0.028-0.122) H 11/30/19 10:07 Absolute Neuts (auto) Not Reportable 11/30/19 19:08 Absolute Lymphs (auto) Not Reportable 11/30/19 19:08 Absolute Monos (auto) Not Reportable 11/30/19 19:08 Absolute Eos (auto) Not Reportable 11/30/19 19:08 Absolute Basos (auto) Not Reportable 11/30/19 19:08 Total Counted 100 11/30/19 19:08 Seg Neutrophils % Not Reportable 11/30/19 19:08 Seg Neuts % (Manual) 79 % (42-78) H 11/30/19 19:08 Band Neutrophils % 1 % (3-5) L 11/29/19 06:00 Lymphocytes % (Manual) 16 % (13-45) 11/30/19 19:08 Monocytes % (Manual) 5 % (3-13) 11/30/19 19:08 Eosinophils % (Manual) 0 % (0-6) 11/30/19 19:08 Basophils % (Manual) 0 % (0-2) 11/30/19 19:08 Abs Neuts (Manual) 20.6 10^3/uL (1.7-8.2) H 11/30/19 19:08 Abs Lymphs (Manual) 4.2 10^3/uL (0.5-4.7) 11/30/19 19:08 Abs Monocytes (Manual) 1.3 10^3/uL (0.1-1.4) 11/30/19 19:08 Absolute Eos (Manual) 0.0 10^3/uL (0.0-0.6) 11/30/19 19:08 Abs Basophils (Manual) 0.0 10^3/uL (0.0-0.2) 11/30/19 19:08 Reticulocyte # (manual) Cancelled 11/30/19 08:35 Nucleated RBCs 1 /100 WBC (0) 11/28/19 04:15 Hypersegmented Neuts PRESENT 11/30/19 19:08 Toxic Granulation 1+ 11/28/19 04:15 Toxic Vacuolation PRESENT 11/28/19 04:15 Platelet Estimate Cancelled 11/30/19 08:35 Platelet Comment ADEQUATE 11/30/19 19:08 Polychromasia SLIGHT 11/30/19 19:08 Poikilocytosis 1+ 11/30/19 10:07 Anisocytosis 3+ 11/30/19 19:08 Macrocytosis SLIGHT 11/27/19 20:15 Pappenheimer Bodies PRESENT 11/27/19 20:15 Sickle Cells 1+ 11/30/19 19:08 Target Cells 2+ 11/30/19 19:08 Tear Drop Cells SLIGHT 11/28/19 04:15 Ovalocytes SLIGHT 11/30/19 10:07 [place] Bodies PRESENT 11/28/19 04:15 Claire Cells 1+ 11/30/19 19:08 Schistocytes 1+ 11/28/19 04:15 Retic Count Cancelled 11/30/19 08:35 Retic Count (manual) Cancelled 11/30/19 08:35 Retic Count (auto) 9.14 % (0.66-2.85) H 11/30/19 10:07 Absolute Retic Cancelled 11/30/19 08:35 PT 15.6 SEC (11.4-15.4) H 11/27/19 20:15 INR 1.23 11/27/19 20:15 D-Dimer 1.30 ug/mL (0.00-0.50) H 11/27/19 20:15 VBG pH 7.43 (7.30-7.42) H 11/27/19 21:56 VBG pCO2 24.8 mmHg (35-63) L 11/27/19 21:56 VBG HCO3 16.2 mmol/L (20-32) L 11/27/19 21:56 VBG Base Excess -6.9 mmol/L 11/27/19 21:56 Sodium 134.6 mmol/L (137-145) L 11/30/19 10:07 Potassium 3.5 mmol/L (3.6-5.0) L 11/30/19 10:07 Chloride 106 mmol/L (98-107) 11/30/19 10:07 Carbon Dioxide 18 mmol/L (22-30) L 11/30/19 10:07 Anion Gap 11 (5-19) 11/30/19 10:07 BUN 14 mg/dL (7-20) 11/30/19 10:07 Creatinine 1.14 mg/dL (0.52-1.25) 11/30/19 10:07 Est GFR ( Amer) > 60 (>60) 11/30/19 10:07 Est GFR (Non-Af Amer) Cancelled 11/30/19 08:35 Est GFR (MDRD) Non-Af > 60 (>60) 11/30/19 10:07 Glucose 109 mg/dL (75-110) 11/30/19 10:07 POC Glucose 102 mg/dL (70-110) 11/27/19 20:03 Lactic Acid 1.1 mmol/L (0.7-2.1) 11/28/19 04:15 Calcium 8.5 mg/dL (8.4-10.2) 11/30/19 10:07 Total Bilirubin 6.3 mg/dL (0.2-1.3) H 11/29/19 06:00 Direct Bilirubin 2.1 mg/dL (0.0-0.4) H 11/29/19 06:00 Neonat Total Bilirubin Not Reportable 11/29/19 06:00 Neonat Direct Bilirubin Not Reportable 11/29/19 06:00 Neonat Indirect Bili Not Reportable 11/29/19 06:00 AST 22 U/L (14-36) 11/29/19 06:00 ALT 23 U/L (<35) 11/29/19 06:00 Alkaline Phosphatase 53 U/L (38-126) 11/29/19 06:00 Total Protein 6.3 g/dL (6.3-8.2) 11/29/19 06:00 Albumin 3.2 g/dL (3.5-5.0) L 11/29/19 06:00 Lipase 74.0 U/L (23-300) 11/27/19 20:15 EGFR Cancelled 11/30/19 08:35 Serum HCG, Qual NEGATIVE (NEGATIVE) 11/27/19 20:15 Urine Color MATI 11/27/19 19:56 Urine Appearance CLOUDY 11/27/19 19:56 Urine pH 8.0 (5.0-9.0) 11/27/19 19:56 Ur Specific [place] 1.011 11/27/19 19:56 Urine Protein 100 mg/dL (NEGATIVE) H 11/27/19 19:56 Urine Glucose (UA) NEGATIVE mg/dL (NEGATIVE) 11/27/19 19:56 Urine Ketones NEGATIVE mg/dL (NEGATIVE) 11/27/19 19:56 Urine Blood MODERATE (NEGATIVE) H 11/27/19 19:56 Urine Nitrite POSITIVE (NEGATIVE) H 11/27/19 19:56 Urine Bilirubin NEGATIVE (NEGATIVE) 11/27/19 19:56 Urine Urobilinogen 2.0 mg/dL (<2.0) H 11/27/19 19:56 Ur Leukocyte Esterase LARGE (NEGATIVE) H 11/27/19 19:56 Urine WBC (Auto) >182 /HPF 11/27/19 19:56 Urine RBC (Auto) 9 /HPF 11/27/19 19:56 Urine Bacteria (Auto) 1+ /HPF 11/27/19 19:56 Urine WBC Clumps MANY /HPF 11/27/19 19:56 Urine Mucus (Auto) RARE /LPF 11/27/19 19:56 Urine Ascorbic Acid NEGATIVE (NEGATIVE) 11/27/19 19:56 Time Trough Drawn 214411/29/19 21:45 Vancomycin Trough 13.1 ug/mL (5.0-20.0) 11/29/19 21:45 Chlamydia DNA (PCR) NOT DETECTED (NOT DETECT) 11/28/19 01:01 COVID-19 Source Cancelled 11/27/19 21:37 COVID-19 (HUYEN) Cancelled 11/27/19 21:37 Influenza A (Rapid) POSITIVE (NEGATIVE) 11/27/19 20:59 Influenza B (Rapid) NEGATIVE (NEGATIVE) 11/27/19 20:59 N.gonorrhoeae DNA (PCR) NOT DETECTED (NOT DETECT) 11/28/19 01:01 SARS-CoV-2 (PCR) NEGATIVE (NEGATIVE) 11/27/19 21:37 Slides for Path Review Cancelled 11/30/19 08:35 Blood Type A POSITIVE 11/29/19 10:25 Blood Type Confirm A POSITIVE 11/29/19 10:34 Antibody Screen NEGATIVE 11/29/19 10:25 Antigen Identification C Antigen - NEGATIVE E Antigen - NEGATIVE K Antigen - NEGATIVE 11/29/19 10:25 Antigen Identification C Antigen - NEGATIVE E Antigen - NEGATIVE K Antigen - NEGATIVE 11/29/19 10:25 Antigen Identification C Antigen - NEGATIVE E Antigen - NEGATIVE K Antigen - NEGATIVE 11/29/19 10:25 Crossmatch See Detail 11/29/19 10:25 Impressions: Chest X-Ray 11/27/19 19:36 IMPRESSION: No acute abnormality is identified. Abdomen/Pelvis CT 11/27/19 21:16 IMPRESSION: There is some minimal stranding around the right kidney with some mild fullness without evidence for gross renal or ureteral calculi. This could represent evidence of infection or a recently passed calculus. Lung Scan-VQ NM 11/27/19 21:16 IMPRESSION: Low probability for pulmonary embolism. Stroke Is this a Stroke Patient?: No Acute Heart Failure - Is this a Heart Failure Patient?: No
== END 2019-12-01 13:17 | disposition home or self-care (01) | DRG 193 ==
LOC: ER 19:02 → EH 11-28 01:00 → 3W 11-28 02:14
PROVIDERS: ADMIT Internal Medicine; ATTEND Physician Assistant
PROC: 30233N1 Transfusion of Nonautologous Red Blood Cells into Peripheral Vein, Percutaneous Approach (ICD-10-PCS; principal; 2019-11-30)
DX: J09.X2 Influenza due to identified novel influenza A virus with other respiratory manifestations (principal); D57.00 Hb-SS disease with crisis, unspecified; R78.81 Bacteremia; N10 Acute pyelonephritis; N39.0 Urinary tract infection, site not specified; D63.8 Anemia in other chronic diseases classified elsewhere; F41.9 Anxiety disorder, unspecified; G47.00 Insomnia, unspecified; B96.20 Unspecified Escherichia coli [E. coli] as the cause of diseases classified elsewhere; Z20.828 Contact with and (suspected) exposure to other viral communicable diseases; J45.909 Unspecified asthma, uncomplicated; F17.200 Nicotine dependence, unspecified, uncomplicated; E66.9 Obesity, unspecified; Z88.0 Allergy status to penicillin; Z88.6 Allergy status to analgesic agent; Z91.041 Radiographic dye allergy status; Z91.018 Allergy to other foods; Z68.36 Body mass index [BMI] 36.0-36.9, adult
CPT/HCPCS: 36415; 36430; 36591; 71045; 74176; 78580; 80048; 80053; 80202; 81001; 82803; 82962; 83605; 83690; 84703; 85025; 85045; 85379; 85610; 86850; 86900; 86901; 86920; 87040; 87077; 87086; 87088; 87150; 87186; 87491; 87591; 87635; 87804; 93005; 93010; 96361; 96365; 96375; 99291; A9540; J0696; J1170; J1200; J1642; J2405; J3370; J3490; J7030; J7060; J7120; P9016; Q9969

== ENCOUNTER 2020-07-26 15:18 | Emergency (ER) | payer MEDICAID ==
[2020-07-26] MEDS ORDERED: NORMAL SALINE 1000 ML 1,000 ML IV ONE ×2 (15:37→18:12)
[2020-07-26] MEDS ORDERED: ONDANSETRON HCL INJ/PF 4 MG/2 ML SDV IV ONE (15:37)
--- NOTE | 2020-07-26 15:38 | ER Document Report ---
ED Medical Screen (RME) - General Chief Complaint: Headache Stated Complaint: WEAKNESS, NAUSEA, FATIGUE Time Seen by Provider: 07/26/20 15:34 Notes: Patient presents with complaints of feeling fatigued and having dehydration. Patient states that she had heartburn for the past 2 days. Patient reports nausea without vomiting or diarrhea. Patient does complain of headache and low back pain. Patient does have a history of sickle cell disease and asthma. Patient also reports she rolled her ankle yesterday at work. I have greeted and performed a rapid initial assessment of this patient. A comprehensive ED assessment and evaluation of the patient, analysis of test results and completion of the medical decision making process will be conducted by additional ED providers. - Related Data Allergies/Adverse Reactions: banana Allergy (Verified 11/27/19 21:00) ibuprofen [From Motrin] Allergy (Verified 11/27/19 20:58) morphine Allergy (Verified 11/27/19 20:57) Penicillins Allergy (Verified 11/27/19 21:00) iv dye Allergy (Uncoded 11/27/19 21:00) Past Medical History Pulmonary Medical History: Reports: Hx Asthma Psychiatric Medical History: Denies: Hx Depression Past Surgical History: Reports: Hx Cholecystectomy, Hx Vascular Surgery - Port Physical Exam - Vital signs Vitals: Temp Pulse Resp BP Pulse Ox 97.9 F 89 18 120/58 L 95 07/26/20 15:26 07/26/20 15:07/26/20 15:07/26/20 15:07/26/20 15:26 - General General appearance: Alert Notes: Sclera icteric, right ankle tenderness over lateral malleolar area, breath sound s clear Course - Vital Signs Vital signs: Temp Pulse Resp BP Pulse Ox 97.9 F 89 18 120/58 L 95 07/26/20 15:26 07/26/20 15:26 07/26/20 15:07/26/20 15:07/26/20 15:26
[2020-07-26 16:10] LABS: APPEARANCE,URINE SLIGHTLY-CLOUDY; BILIRUBIN,URINE NEGATIVE (NEGATIVE); COLOR,URINE YELLOW; GLUCOSE, URINE NEGATIVE (NEGATIVE); KETONES,URINE NEGATIVE (NEGATIVE); LEUKOCYTE ESTERASE,URINE TRACE (NEGATIVE); NITRITE,URINE POSITIVE (NEGATIVE); PROTEIN,URINE NEGATIVE (NEGATIVE); URINE SPECIFIC GRAVITY 1.012; UROBILINOGEN,URINE NEGATIVE mg/dL (<2.0)
--- NOTE | 2020-07-26 16:25 | RADIOLOGY REPORT (SQ) ---
EXAM DESCRIPTION: ANKLE RIGHT COMPLETE IMAGES COMPLETED DATE/TIME: 07/26/2020 3:02 pm REASON FOR STUDY: r ankle injury. COMPARISON: None. NUMBER OF VIEWS: Three views. TECHNIQUE: AP, lateral, and oblique radiographic images acquired of the right ankle. LIMITATIONS: None. FINDINGS: MINERALIZATION: Normal. BONES: No acute fracture or dislocation. No worrisome bone lesions. JOINTS: Normal ankle mortise alignment. No ankle joint effusion. No intra-articular loose body. SOFT TISSUES: No soft tissue swelling. No foreign body. OTHER: No other significant finding. IMPRESSION: NEGATIVE STUDY OF THE RIGHT ANKLE. NO RADIOGRAPHIC EVIDENCE OF ACUTE INJURY. TECHNICAL DOCUMENTATION: JOB ID: [id number] [employer]- All Rights Reserved Reading location - IP/workstation name: [email or web address]
--- NOTE | 2020-07-26 16:26 | RADIOLOGY REPORT (SQ) ---
EXAM DESCRIPTION: CHEST SINGLE VIEW IMAGES COMPLETED DATE/TIME: 07/26/2020 3:02 pm REASON FOR STUDY: cp. Ankle pain. COMPARISON: None. EXAM PARAMETERS: NUMBER OF VIEWS: One view. TECHNIQUE: Single frontal radiographic view of the chest acquired. RADIATION DOSE: NA LIMITATIONS: None. FINDINGS: LUNGS AND PLEURA: No opacities, masses or pneumothorax. No pleural effusion. MEDIASTINUM AND HILAR STRUCTURES: No masses. Contour normal. HEART AND VASCULAR STRUCTURES: Heart normal in size. Normal vasculature. BONES: No acute findings. HARDWARE: Double lumen central venous catheter with tip in the right atrium unchanged from prior. OTHER: No other significant finding. IMPRESSION: NO ACUTE RADIOGRAPHIC FINDING IN THE CHEST. TECHNICAL DOCUMENTATION: JOB ID: [id number] 2010 [employer]- All Rights Reserved Reading location - IP/workstation name: [email or web address]
[2020-07-26 17:41] LABS: HEMATOCRIT 17.2 % (36.0-47.0); MEAN CORPUSCULAR HEMOGLOBIN 37.6 pg (27.0-33.4); MEAN CORPUSCULAR HGB CONC 36.6 g/dL (32.0-36.0); MEAN CORPUSCULAR VOLUME 103 fl (80-97); PLATELET COUNT 405 10^3/uL (150-450); RED BLOOD COUNT 1.67 10^6/uL (3.72-5.28); RED CELL DISTRIBUTION WIDTH 24.2 % (11.5-14.0); RETICULOCYTE COUNT (AUTO) 20.93 % (0.66-2.85); WHITE BLOOD COUNT 14.1 10^3/uL (4.0-10.5)
[2020-07-26 17:42] LABS: ALBUMIN 4.3 g/dL (3.5-5.0); ALKALINE PHOSPHATASE 51 U/L (38-126); ANION GAP 7 (5-19); ASPARTATE AMINO TRANSFERASE 30 U/L (14-36); BILIRUBIN,DIRECT 0.3 mg/dL (0.0-0.4); BILIRUBIN,TOTAL 5.3 mg/dL (0.2-1.3); BLOOD UREA NITROGEN 10 mg/dL (7-20); CALCIUM 9.5 mg/dL (8.4-10.2); CARBON DIOXIDE 23 mmol/L (22-30); CHLORIDE 109 mmol/L (98-107); GLUCOSE 92 mg/dL (75-110); POTASSIUM 3.9 mmol/L (3.6-5.0); TOTAL PROTEIN 7.7 g/dL (6.3-8.2)
[2020-07-26 18:03] LABS: ABSOLUTE LYMPHOCYTES# (MANUAL) 5.5 10^3/uL (0.5-4.7); BASOPHILS % (MANUAL) 0 % (0-2); EOSINOPHILS % (MANUAL) 1 % (0-6); LYMPHOCYTES % (MANUAL) 39 % (13-45); MONOCYTES % (MANUAL) 14 % (3-13); SEGMENTED NEUTROPHILS % (MAN) 46 % (42-78); TOTAL CELLS COUNTED 100
[2020-07-26 18:07] LABS: ANISOCYTOSIS 3+; OVALOCYTES 2+; PLATELET COMMENT ADEQUATE; POIKILOCYTOSIS 2+; POLYCHROMASIA 1+; SICKLE RED CELLS 1+; TARGET CELLS 1+
[2020-07-26] MEDS ORDERED: HYDROMORPHONE HCL INJ/PF 2 MG/ML AMPULE IV ONE (18:12)
[2020-07-26 18:23] LABS: HEMOGLOBIN 6.3 g/dL (12.0-15.5)
--- NOTE | 2020-07-26 18:50 | EKG REPORT ---
SEVERITY:- NORMAL ECG - SINUS RHYTHM : Confirmed by: Isael Rae MD 26-Jul-2020 18:50:25
--- NOTE | 2020-07-26 20:08 | ER Document Report ---
ED General - General Chief Complaint: Headache Stated Complaint: WEAKNESS, NAUSEA, FATIGUE Time Seen by Provider: 07/26/20 15:34 Mode of Arrival: Ambulatory - [facility] Notes: Patient presents to the emergency department with a variety of complaints as noted in the rapid medical exam. Her biggest concern is that she thinks she may be sickling again. She also rolled her ankle and it sore. She is able to bear weight. She has a long history of sickle cell disease. Later in the visit she revealed to me that she just recently moved here from [place] and has not established primary care yet. She has needed transfusions in the past but she says that her doctors in [place] would not transfuse her unless her hemoglobin got down to the range of 5.0. She has weakness nausea and fatigue. She complains of a headache. She denies cough or shortness of breath. She is otherwise in her usual state of health. - Related Data Allergies/Adverse Reactions: banana Allergy (Verified 11/27/19 21:00) ibuprofen [From Motrin] Allergy (Verified 11/27/19 20:58) morphine Allergy (Verified 11/27/19 20:57) Penicillins Allergy (Verified 11/27/19 21:00) iv dye Allergy (Uncoded 11/27/19 21:00) Past Medical History - General Information source: Patient - Social History Smoking Status: Never Smoker Family History: Hypertension - Medical History Notes: Past medical history as documented in electronic health record is reviewed. Pulmonary Medical History: Reports: Hx Asthma Psychiatric Medical History: Denies: Hx Depression Past Surgical History: Reports: Hx Cholecystectomy, Hx Vascular Surgery - Port Review of Systems - Review of Systems Notes: All other systems reviewed are negative or noncontributory except as noted the present illness. Physical Exam - Vital signs Vitals: Temp Pulse Resp BP Pulse Ox 97.9 F 89 18 120/58 L 95 07/26/20 15:26 07/26/20 15:26 07/26/20 15:26 07/26/20 15:26 07/26/20 15:26 - Notes Notes: General: Well-developed well-nourished female appears somewhat fatigued but in no acute distress. Vital signs and nursing documentation are reviewed. HEENT grossly normal to inspection. Neck: Supple, nontender no adenopathy. Lungs: Clear to auscultation all unger. Heart: Regular rate and rhythm no murmur. Back: Normal curvatures no CVA tenderness. Abdomen: Soft nontender no masses organomegaly. Extremities: Without clubbing cyanosis edema or deformity. Skin: Warm moist good turgor no rashes. Neuro: Alert and oriented x3. Cranial nerves II through XII appear intact. Strength and sensation are within normal limits. Gait and station not tested. Course - Re-evaluation Re-evalutation: 07/26/20 20:06 Patient received some ondansetron, 2 L of saline, and some Dilaudid. She felt somewhat better although she was still somewhat fatigued. She is comfortable going home to rest this weekend. We will give her a note to be off work. She should return to the emergency department Wednesday afternoon after work for reevaluation and repeat CBC. - Vital Signs Vital signs: Temp Pulse Resp BP Pulse Ox 97.9 F 89 18 120/58 L 95 07/26/20 15:26 07/26/20 15:26 07/26/20 15:26 07/26/20 15:26 07/26/20 15:26 - Laboratory Results Result Diagrams: 07/26/20 17:05 07/26/20 17:05 Laboratory Results Interpreted: 07/26/20 07/26/20 07/26/20 15:42 17:05 17:05 WBC 14.1 H RBC 1.67 L Hgb 6.3 L Hct 17.2 L MCV 103 H MCH 37.6 H MCHC 36.6 H RDW 24.2 H Reticulocyte # 0.350 H Monocytes % (Manual) 14 H Abs Lymphs (Manual) 5.5 H Abs Monocytes (Manual) 2.0 H Retic Count (auto) 20.93 H Chloride 109 H Total Bilirubin 5.3 H Urine Blood SMALL H Urine Nitrite POSITIVE H Ur Leukocyte Esterase TRACE H Critical Laboratory Results Reviewed: Yes Attending or Supervising Physician who Reviewed Labs: ELISE RITTER - Radiology Results Critical Radiology Results Reviewed: No Critical Results Discharge - Discharge Clinical Impression: Anemia of chronic disease UTI (urinary tract infection) Qualifiers: Urinary tract infection type: acute cystitis Hematuria presence: without hematuria Qualified Code(s): N30.00 - Acute cystitis without hematuria Disposition: HOME, SELF-CARE Instructions: Nitrofurantoin ([facility]), Urinary Tract Infection ([facility]) Additional Instructions: A prescription for Macrodantin, an antibiotic, has been sent to your pharmacy. Please pick this up and take it according to label directions. Take it until it is all gone. You have been given a note to be off work until Wednesday. Return to the emergency department Wednesday afternoon after work for reevaluation and repeat blood count. Return sooner if your symptoms worsen or if any other concerning symptoms develop. Prescriptions: Nitrofurantoin Monohyd/M-Cryst [Macrobid 100 mg Capsule] 100 mg PO BID #14 cap Forms: Return to Work
[2020-07-26 20:33] VITALS: BP 114/55
== END 2020-07-26 20:34 | disposition home or self-care (01) ==
LOC: ER 15:18
DX: D57.1 Sickle-cell disease without crisis (principal); N30.00 Acute cystitis without hematuria; S99.911A Unspecified injury of right ankle, initial encounter; X50.9XXA Other and unspecified overexertion or strenuous movements or postures, initial encounter; R11.0 Nausea; R53.81 Other malaise; J45.909 Unspecified asthma, uncomplicated; Z91.018 Allergy to other foods; Z88.8 Allergy status to other drugs, medicaments and biological substances; Z88.6 Allergy status to analgesic agent; Z88.5 Allergy status to narcotic agent; Z88.0 Allergy status to penicillin; Z91.041 Radiographic dye allergy status; Z20.822 Contact with and (suspected) exposure to COVID-19
CPT/HCPCS: 93005; 99285; 96361; 96374; 96375; 36415; 87086; 84703; 85025; 87635; 87088; 85045; 80053; 81001; 87186; 73610; 71045; 93010; J1170; J2405; J7030; J1642; C9803